=== PATIENT | male | born 1970 | race African-American/Black ===

== ENCOUNTER 2024-10-23 09:38 | Emergency (ER) | payer SELFPAY ==
--- NOTE | ~2024-10-23 | CT_ITS ---
EXAMINATION: CT HEAD WITHOUT IV CONTRAST HISTORY: headache, HTN. TECHNIQUE: Unenhanced helical CT of the head was performed per standard departmental protocol. Coronal and sagittal reformats of the head were also evaluated. One or more of the following techniques was used for dose reduction: Automated exposure control, adjustment of the mA and/or kV according to patient size, use of iterative reconstruction technique. DLP: 878 mGy-cm COMPARISON: There are no prior studies available for comparison. FINDINGS: BRAIN: There are scattered periventricular and subcortical white matter hypodensities which are nonspecific, but likely represent small vessel ischemic disease. Dong/white differentiation is otherwise normal. The ventricular system is normal in size and configuration. There is no mass effect or midline shift. No intra- or extra-axial fluid collections are identified. SINUSES: There is pansinus mucosal thickening. There is a probable small amount of fluid in the left maxillary sinus. The mastoid air cells and middle ear cavities are well pneumatized. ORBITS: The visualized orbits are unremarkable. BONES/SOFT TISSUES: The extracranial soft tissues are unremarkable. The calvarium is intact. No suspicious lytic or sclerotic lesions. CT/CT head/brain wo IV con IMPRESSION: 1. No evidence of intracranial hemorrhage. 2. Paranasal sinus disease as described. Electronically signed by: Nicholas Oneil MD 10/23/2024 11:29 AM EDT
[2024-10-23 09:42] VITALS: BP 254/137; PULSE 88; RESP 16; TEMP 36.4; O2SAT 96; BMI 39.5
--- NOTE | 2024-10-23 09:46 | ED_ITS ---
HPI - General Adult General Chief complaint: General Medical Stated complaint: High BP Time Seen by Provider: 10/23/24 10:23 Source: patient and old records reviewed Mode of arrival: ambulatory Limitations: no limitations History of Present Illness ED Provider: JAKE ESPINOSA narrative: 54 yo male with PMH of HTN but not on medications and has not seen a doctor in years here with c/o posterior headache and feeling lightheaded while at rest last night. No numbness, weakness, vision changes. No CP/SOB. Took motrin this AM with some relief. He denies head trauma. He is traveling back home to [place] but wanted to get checked out. During his symptoms he checked his BP it was 200s/100s. He notes he doesn't usually check his MD complaint: headache/dizziness Onset (ago): day(s) (1) Location: head Radiation: non-radiation Severity: moderate Quality: aching Pain Consistency: other (improved) Relieving factors: medication Exacerbating factors: none Associated symptoms: denies other symptoms Treatments prior to arrival: none Related Data Previous Rx's ?Medication ?Instructions ?Recorded amlodipine 5 mg tablet 5 mg PO DAILY #30 tabs 10/23 Allergies Allergy/AdvReac Type Severity Reaction Status Date / Time No Known Allergies Allergy Verified 10/23/24 09:42 Review of Systems 2 Review of Systems: Constitutional : No Fever, No Chills, No Fatigue ENT/Mouth : No sore throat, No Rhinorrhea Eyes: No Eye Pain, No Swelling, No Redness Cardiovascular : No Chest Pain, No SOB, No Dyspnea on Exertion Respiratory : No Cough, No Sputum Gastrointestinal : No Nausea, No Vomiting, No Diarrhea, No abdominal Pain Genitourinary : No Dysuria, No Urinary Frequency, No Hematuria, Musculoskeletal : No joint pain, No Myalgias, No Joint Swelling Skin : No Skin Lesions, No rash Neuro : No Weakness, No Numbness, No Dizziness, positive Headache Psych : No Anxiety/Panic, No Depression Heme/Lymph: No Bruising, No Bleeding,No Lymphadenopathy Endocrine : No Polyuria, No Polydipsia All other systems reviewed and are negative [facility] Past Medical History Attestation statement: The following information was validated with the patient. Source: old records reviewed Medical History HTN (hypertension) Social History Social History (Updated 10/23/24 @ 10:39 by Delicia James DO) Patient Tobacco Use Status: Tobacco use Unknown Advance Directives: No Advance Directives Information Provided: Yes Physical Exam ED Vital Signs: Vital Signs - 24 hr 10/23/24 09:42 10/23/24 10:15 10/23/24 11:14 Temperature 97.5 F 98.7 F Pulse Rate 88 83 Respiratory Rate 16 18 Blood Pressure 254/137 H 185/92 H 195/104 H Pulse Oximetry 96 94 Oxygen Delivery Method Room Air Room Air 10/23/24 11:33 Temperature Pulse Rate Respiratory Rate Blood Pressure 165/90 H Pulse Oximetry Oxygen Delivery Method BMI result Body Mass Index 39.5 Appearance: Alert. Oriented X3. No acute distress. Eyes: Pupils equal, round and reactive to light. ENT: Pharynx normal. Neck: Normal inspection. Neck supple. CVS: Normal heart rate and rhythm. Pulses normal. Respiratory: No respiratory distress. Breath sounds normal. Abdomen: Soft and nontender. Skin: Skin warm and dry. Normal skin color. Normal skin turgor. Extremities: No lower extremity edema. No calf ttp Neuro: Oriented X 3. No motor deficit. No sensory deficit. CN2-12 intact NIH Stroke Scale Internal: Initial- Upon Arrival Level of Consciousness: Alert Level of Consciousness Questions: Answers both questions correctly Level of Consciousness Commands: Performs both tasks correctly Best Gaze: Normal Visual: No visual loss Facial Palsy: Normal Motor Arm (Right): No drift Motor Arm (Left): No drift Motor Leg (Right): No drift Motor Leg (Left): No drift Limb Ataxia: Absent Sensory: Normal Best Language: No aphasia Dysarthia: Normal Extinction and Inattention: No abnormality Score: 0 Course Course Course Narrative: This is an RME: Additional HPI, ROS, PE not included below will be deferred to primary provider. RME assessment and note performed by: Lizy Odonnell PA-C This is a [id number]-male who presents to the ER with complaint of headache, dizziness since yesterday. He states that he has visiting from out of the area. He has not seen a doctor in over 20 years. No known history of high blood pressure. BP 254/137 Plan: Labs, EKG, CT head, pt to be brought back led[place] Medications Administered Discontinued Medications Generic Name Dose Route Start Last Admin Trade Name Freq PRN Reason Stop Dose Admin Amlodipine Besylate 10 mg 10/23/24 11:15 10/23/24 11:33 Amlodipine Besylate 10 Mg Tablet PO 10/23/24 11:16 10 mg ONCE ONE Administration Protocol Medical Decision Making Medical Decision Making [facility] Narrative: 54 yo male with PMH of HTN but no medications and no PCP in 20 years he is here with symptoms of headache this am in back of head that started last night while at rest - BPs in 200s at home. At this time he has no severe end organ dysfunction and normal neuro exam / gait. He will get labs, CT head for mass/ICH, start on oral BP medications and monitor. He is traveling to [place] soon and will get PCP there. He is from [place]. He has no CP/SOB to suggest ACS Differential Diagnosis Differential Diagnoses: The differential diagnosis associated with the presentation includes uncontrolled HTN, renal ds Admission/Observation Consideration of admission/observation: Escalation of care including admission/observation considered BP trending down feel smuch better stable for DC Lab Data [facility] Lab Attestation statement: I reviewed the patient's lab results. 10/23/24 10:05 10/23/24 10:05 Labs: Lab Results 10/23/24 10/23/24 Range/Units 10:05 10:37 WBC 6.3 (4.8-10.8) X10*3/uL RBC 4.89 (4.60-5.80) X10*6/uL Hgb 15.5 (14.0-18.0) g/dl Hct 44.0 (42.0-52.0) % MCV 90.0 (80.0-98.0) fL MCH 31.7 (27.0-33.0) pg MCHC 35.2 (31.0-36.0) g/dl RDW 12.1 (11.0-16.0) % Plt Count 111 L (160-400) X10*3/uL MPV 11.7 (9.4-12.4) fL Immature Gran % (Auto) 0.3 (0.0-0.4) % Neut % (Auto) 76.3 H (45-73) % Lymph % (Auto) 14.7 L (20-40) % [place] % (Auto) 7.0 (2-11) % Eos % (Auto) 1.1 (0-4) % Baso % (Auto) 0.6 (0-2) % Lymph # (Auto) 0.9 L (1.2-4.9) X10*3/uL [place] # (Auto) 0.4 (0.1-1.2) X10*3/uL Eos # (Auto) 0.1 (0.0-0.4) X10*3/uL Baso # (Auto) 0.0 (0.0-0.2) X10*3/uL Abs Immat Gran (auto) 0.02 (0.00-0.03) X10*3/uL Absolute Neuts (auto) 4.8 (2.0-8.3) x10*3/uL Absolute Nucleated RBC 0.000 (0.0-0.012) X10*3/uL Nucleated RBC % (auto) 0.0 (0.0-0.2) /100WBC Sodium 139 (135-145) mmol/L Potassium 3.9 (3.3-5.1) mmol/L Chloride 106 (96-108) mmol/L Carbon Dioxide 26 (22-29) mmol/L Anion Gap 11 L (12-20) BUN 17 H (9-16) mg/dL Creatinine 1.02 (0.5-1.4) mg/dL Estim Creat Clear Calc 94.6 Estimated GFR > 60 Random Glucose 159 H (60-115) mg/dL Calcium 9.2 (8.4-10.2) mg/dL Magnesium 1.9 (1.6-2.6) mg/dL Total Bilirubin 0.5 (0.0-1.0) mg/dL Direct Bilirubin 0.2 (0.0-0.5) mg/dL AST 25 (5-37) U/L ALT 39 (0-40) U/L Alkaline Phosphatase 68 (39-117) U/L Troponin I High Sens 5.4 (<3.5-35.0) ng/L Total Protein 7.6 (6.5-8.0) g/dL Albumin 4.6 (3.5-5.0) g/dL Urine Color Yellow Urine Appearance Clear Urine pH 6.5 (5.0-9.0) Ur Specific [place] 1.010 (1.005-1.025) Urine Protein Negative (Neg-Trace) mg/dL Urine Glucose (UA) 100 H (Negative) mg/dL Urine Ketones Negative (Negative) mg/dL Urine Blood Negative (Negative) Urine Nitrite Negative (Negative) Ur Leukocyte Esterase Negative (Negative) Influenza Type A (PCR) NEGATIVE (Negative) Influenza Type B (PCR) NEGATIVE (Negative) RSV RNA Qual (PCR) NEGATIVE (Negative) SARS-CoV-2 RNA (RT-PCR) NEGATIVE (Negative) Independent Interpretation I performed an independent interpretation of an: EKG and CT Scan (no ICH, roy sinusitis) Interpretation: Rate: 92 Rhythm: NSR [place]: normal Normal P waves. Normal MIRNA. Normal QRS complex. ST T wave : normal no BERRY qTC: 432 prior studies: no acute ischemia The study has been interpreted contemporaneously by me. . Radiology Impression Discussion of test interpretation with radiology: I have reviewed the radiologist's reading. Independent Historian Clinical information obtained from an independent historian. History obtained from or confirmed by: Spouse Prescription Management I considered prescription management with: Other Discharge Plan Discharge Clinical Impression: Hypertension, uncontrolled Acute pansinusitis Qualifiers: Recurrence: not specified as recurrent Qualified Code(s): J01.40 - Acute pansinusitis, unspecified Patient Disposition: Home, Self-Care Instructions: Amlodipine (By mouth), Sinusitis (ED), Chronic Hypertension (ED) Additional Instructions: labs and head CT normal return for dizziness, numbness, weakness, or any other concerns start 5mg amlodipine next dose is in the AM please call and get PCP when you return home Prescriptions: New amlodipine 5 mg tablet 5 mg PO DAILY Qty: 30 0RF Rx Instructions: next dose is 10/24/24 Print Language: Yakut
--- NOTE | 2024-10-23 09:47 | ECG_ITS ---
Test Reason : HTN/DIZZY Blood Pressure : */* mmHG Vent. Rate : 92 BPM Atrial Rate : 92 BPM P-R Int : 188 ms QRS Dur : 86 ms QT Int : 350 ms P-R-T Axes : 64 -2 13 degrees QTcB Int : 432 ms Normal sinus rhythm Possible Left atrial enlargement Inferior infarct , age undetermined Abnormal ECG No previous ECGs available Referred By: Lizy Odonnell Electronically Signed By: MOISÉS ALDANA
[2024-10-23 10:15] VITALS: BP 185/92; PULSE 83; RESP 18; TEMP 37.1; O2SAT 94
[2024-10-23 10:16] LABS: MANUAL DIFF FLAG NO
[2024-10-23 10:20] LABS: Hematocrit 44.0 % (42.0-52.0); Hemoglobin 15.5 g/dl (14.0-18.0); Imm Gran Abs Auto 0.02 X10*3/uL (0.00-0.03); Imm Gran Pct Auto 0.3 % (0.0-0.4); Lymphocytes Absolute Auto 0.9 X10*3/uL (1.2-4.9); Mean Corpuscular HGB Conc 35.2 g/dl (31.0-36.0); Mean Corpuscular Hemoglobin 31.7 pg (27.0-33.0); Mean Corpuscular Volume 90.0 fL (80.0-98.0); NRBC Abs Auto 0.000 X10*3/uL (0.0-0.012); NRBC Pct Auto 0.0 /100WBC (0.0-0.2); Platelet Count 111 X10*3/uL (160-400); Red Blood Count 4.89 X10*6/uL (4.60-5.80); White Blood Count 6.3 X10*3/uL (4.8-10.8)
[2024-10-23 10:35] LABS: Alanine Aminotransferase 39 U/L (0-40); Albumin Level 4.6 g/dL (3.5-5.0); Alkaline Phosphatase 68 U/L (39-117); Anion Gap 11 (12-20); Aspartate Amino Transferase 25 U/L (5-37); Blood Urea Nitrogen 17 mg/dL (9-16); Calcium 9.2 mg/dL (8.4-10.2); Carbon Dioxide 26 mmol/L (22-29); Chloride 106 mmol/L (96-108); Creatinine Clr Calc Pharmacy 94.6; Estimated Glomerular Filt Rate > 60; Magnesium 1.9 mg/dL (1.6-2.6); Potassium 3.9 mmol/L (3.3-5.1); Sodium 139 mmol/L (135-145); Total Protein 7.6 g/dL (6.5-8.0)
[2024-10-23 10:43] LABS: Troponin-I High Sensitivity 5.4 ng/L (<3.5-35.0)
[2024-10-23 10:49] LABS: Appearance Urine Clear; Glucose Urine UA 100 mg/dL (Negative); PH 6.5 (5.0-9.0); Specific Gravity - Urine 1.010 (1.005-1.025)
[2024-10-23 11:01] LABS: Resp Syncy Virus RNA Qual PCR NEGATIVE (Negative); SARS COV2 PCR INHOUSE NEGATIVE (Negative)
--- OUTSIDE RECORDS SUMMARY | 2024-10-23 11:06 | XMS_ITS | Clinical Summary ---
Author Organization [facility] Address [address] [place] [id number] Care Team Providers Care Live Ammunition Inspector Name Role Phone Pcp, None Per Patient Primary Care Provider Unav ailable Source Comments In the event that these patient records contain information protected by 42 CFRpart 2 (i.e., would identify the patient as a substance abuser and was obtainedby a federally assisted substance abuse program to diagnose, refer fortreatment or treat the patient for substance abuse), please be advised of thefollowing: This information has been disclosed to you from records protected by Federalconfidentiality rules (42 CFR part 2). The Federal rules prohibit you frommaking any further disclosure of this information unless further disclosure isexpressly permitted by the written consent of the person to whom it pertains oras otherwise permitted by 42 CFR part 2. A general authorization for therelea se of medical or other information is NOT sufficient for this purpose.The Federal rules restrict any use of the information to criminally investigateor prosecute any alcohol or drug abuse patient. expressly permitted by the written consent of the person to whom it pertains or as otherwise permitted by 42 CFR part 2. A general authorization for the release of medical or other information is NOT sufficient for this purpose. The Federal rules restrict any use of the information to criminally investigate or prosecute any alcohol or drug abuse patient.formerly [facility] Care Allergies No known active allergies Medications sulfamethoxazol e-trimethoprim (BACTRIM DS) 800-160 mg per tabletIndicatio ns:Laceration of right lower leg, initial encounter Take 1 tablet (160 mg of trimethoprim total) by mouth Two (2) times a day. 14 tablet 1 Active Active Problems No known active problems Immunizations Immunization Administration Dates Next Due TdaP 12/26/2020 Social History Tobacco Use Types Packs/Day Years Used Date Smoking Tobacco: Never Smokeless Tobacco: Never Sex and Gender Information Value Date Recorded Sex Assigned at Not on file Legal Sex Male 8:16 PM EDT Gender Identity Not on file Sexual Orientation Not on file Last Filed Vital Signs Vital Sign Reading Time Taken Comments Blood Pressure 145/78 12/27/2020 12:35 AM EDT Pulse 71 12/27/2020 12:35 AM EDT Temperature 37.1 C (98.7 F) 12/26/2020 8:32 PM EDT Respiratory Rate 19 12/27/2020 12:35 AM EDT Oxygen Saturation 94% 12/27/2020 12:35 AM EDT Inhaled Oxygen Concentration - - Weight 120.2 kg (265 lb) 12/26/2020 10:46 PM EDT Height - - Body Mass Index - - Plan of Treatment Health Maintenance Due Date Last Done Comments Hepatitis C Screen 1986 Colonoscopy Start Age 40 2008 Lipid Screening 2008 Colon Cancer Screening 2013 Colonoscopy 2013 FIT-DNA Stool Test 2013 FOBT/FIT 2013 Sigmoidoscopy 2013 COVID-19 Vaccine ( season) 2023 Influenza Vaccine (#1) 2024 Care Teams Live Ammunition Inspector Relationship Specialty Start Date End Date Pcp, None Per Patient [address] [place] [address] PCP - General 12/26/20
[2024-10-23 11:14] VITALS: BP 195/104
[2024-10-23 11:33] VITALS: BP 165/90
[2024-10-23 11:55] VITALS: BP 158/92; PULSE 69; RESP 14; TEMP 36.4; O2SAT 93
[2024-10-23 12:10] VITALS: BP 158/92; PULSE 69; RESP 14; TEMP 36.4; O2SAT 93
== END 2024-10-23 12:14 | disposition home or self-care (01) ==
PROVIDERS: Physician Assistant Medical; Emergency Provider Emergency Medicine
DX: J01.40 Acute pansinusitis, unspecified (principal); I10 Essential (primary) hypertension; R51.9 Headache, unspecified; Z03.818 Encounter for observation for suspected exposure to other biological agents ruled out
CPT/HCPCS: 36415; 70450; 80048; 80076; 81003; 83735; 84484; 85025; 87637; 93005; 99284

== ENCOUNTER → 2024-10-23 09:46 | Outpatient (BNV) | payer SELFPAY | PROVIDERS: Emergency Provider Emergency Medicine; Visit Provider Radiology Diagnostic Radiology | DX: J34.89 Other specified disorders of nose and nasal sinuses (principal) | CPT/HCPCS: 70450 ==

== ENCOUNTER → 2024-10-23 09:47 | Outpatient (BNV) | payer SELFPAY | PROVIDERS: Emergency Provider Emergency Medicine; Visit Provider Internal Medicine | DX: R94.31 Abnormal electrocardiogram [ECG] [EKG] (principal); I10 Essential (primary) hypertension; R42 Dizziness and giddiness | CPT/HCPCS: 93010 ==